=== PATIENT | male | born 1930 | race Caucasian/White ===

== ENCOUNTER 2017-08-17 07:58 | Inpatient (IN) | payer OTHER ==
[2017-08-17] MEDS ORDERED: ACETAMINOPHEN 325 MG TAB PO PRN (17:06)
[2017-08-17] MEDS ORDERED: BISACODYL 10 MG SUPP PR PRN (17:07)
--- NOTE | 2017-08-17 18:23 | GHP ---
[f rep st] HISTORY AND PHYSICAL POST ADMISSION PHYSICIAN EVALUATION AND REHABILITATION TREATMENT PLAN DATE OF ADMISSION: 08/17/2017 DATE OF EVALUATION: 08/17/2017. TIME OF EVALUATION: 1650. REFERRING FACILITY: [facility]. IMPAIRMENT GROUP: 1.2. DATE OF ONSET: 08/04/2017. REFERRING PHYSICIAN: Dr. Boyle. CONSULTING PHYSICIANS: Neurology, Dr. Barksdale. He also had cardiology consult for an echocardiogram. REHABILITATION DIAGNOSIS: Cerebrovascular accident, punctate posterior left frontal lobe. ETIOLOGIC DIAGNOSIS: Right body involvement (left brain). HISTORY OF PRESENT ILLNESS: This patient is an 87-year-old man who was admitted to [facility] on 08/14/2017 with sudden onset of confusion and speech difficulties. This was consistent with a cerebrovascular accident. A CT scan at the hospital did not show any hemorrhage. He received tPA thrombolysis in the emergency department. Further evaluation during his hospital stay included an MRI of the brain which showed a punctate acute white matter infarct in the left posterior frontal lobe, extensive chronic small- vessel ischemic changes, and several old microhemorrhages. A CT angiogram showed extensive intracranial atherosclerotic disease, also seen on CT angiogram of the neck. 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 He had severe stenosis of various arteries in the brain. Echocardiogram showed normal systolic function with an ejection fraction of 69%. He had mild mitral regurgitation. He had mildly elevated right ventricular systolic pressure at 37 mmHg and mild tricuspid regurgitation. There was no atrial septal defect or patent foramen ovale. LABORATORY STUDIES: He was considered to be dehydrated on admission. His BUN was 29 and his creatinine was 1.71. He had rehydration. His overall renal function and electrolytes were within normal limits but for his BUN on 2017, which remained at elevated at 35 and creatinine at 1.66. LDL was 105, total cholesterol was 180, HDL was 50 and triglycerides were 128. CBC on admission was normal with a hemoglobin of 14.9 and hematocrit of 43.6, and on he had developed anemia with a hemoglobin of 11.6 and hematocrit of 35. CBC was otherwise within normal limits. INR was normal at 0.97. He was treated with simvastatin and clopidogrel. Aspirin was continued. He was begun on heparin for DVT prophylaxis. He had gradual improvement in his aphasia. He participating in therapies and appropriate for inpatient rehabilitation. PRECAUTIONS: He is a fall risk. ACTIVE COMORBIDITIES: He has the tier 3 comorbidity of diabetes mellitus with manifestations. PAST MEDICAL HISTORY: 1. Diabetes mellitus. 2. Hypertension. PAST SURGICAL HISTORY: I do not know whether he has had surgeries or not. PRE-HOSPITAL MEDICATIONS: The family reports he was taking medication for blood pressure, but it is unknown what he was taking. He was taking metformin. He was taking aspirin 325 mg daily. ADMISSION MEDICATIONS: 1. Acetaminophen 650 mg p.o. q.6 hours p.r.n. 2. Aspirin 325 mg p.o. at bedtime. 3. Clopidogrel 75 mg p.o. daily. 4. Heparin 5000 units subcutaneous q.12 hours. 5. Simvastatin 40 mg p.o. at bedtime. ALLERGIES: There are no known drug allergies. 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 He worked for the [employer]. He is a former smoker and quit in 1988. He has been splitting his time between [place], where 1 of his sons lives, and [place], where his other son lives, and in either situation he lives with the son and family. He has managed his own medications and made his own travel plans though, in recent times, he was arranging for a wheelchair to [place] at the [place] and had become increasingly sedentary. He spends time reading and watching television and on an iPad, but was spending increased time watching television and less time reading recently. FAMILY HISTORY: Noncontributory. REVIEW OF SYSTEMS: Limited, as he has expressive aphasia. He denies pain. He denies cough or dyspnea. He has a good appetite. He has had poor sleep in the hospital per his son, particularly interrupted in the beginning of the week for frequent neuro checks, but he likely has not had a full night's sleep during his hospitalization. Otherwise, a 10-point review of systems to the extent that could be conducted was negative. PHYSICAL EXAM: VITALS: Blood pressure is 136/90, heart rate is 84, respiratory rate is 18, oxygen saturation is 92% on room air. Temperature is 37 degrees centigrade. His weight is 85.5 kg for a body mass index of 27. GENERAL: This is an overweight elderly man, appears younger than his chronologic age, cooperative and in no acute distress. HEENT: Extraocular movements are intact. Pupils are miotic but responsive to light and round. Mucous membranes are moist. He has halitosis. Dentition is in good condition, but he appears to be in need of better oral hygiene. He has a mildly crowded airway, Mallampati class II. NECK: Supple. HEART: Regular rate and rhythm with no murmurs, rubs, or gallops. LUNGS: Clear to auscultation bilaterally. ABDOMEN: Soft, nontender, nondistended with normoactive bowel sounds and no hepatosplenomegaly. He has occasional hiccups. EXTREMITIES: There is no cyanosis or clubbing. There is trace edema bilaterally to the lower extremities. Radial and dorsalis pedis pulses are 2+ bilaterally. NEUROLOGIC: He is alert, he is oriented to himself. He is able to say the month and date of . He is dysarthric and he appears to use neologisms at times though assessment is confounded by the dysarthria. Cranial nerves 2-12 are grossly intact. There is no focal weakness, though he was not completely compliant with the exam; he did not understand instructions regarding biceps muscle strength testing. Sensation is intact to light touch. Deep tendon reflexes are 1+ bilaterally at the biceps and patella, and hypoactive at the Achilles tendons. Sensory exam was difficult to complete due to communication difficulties. His plantar reflex was upgoing on the right and indeterminate on the left. He stood up from seated without being prompted to do so. He had retropulsion while standing and also was retropulsive while sitting up. He was able to arise from supine to seated and from seated to standing without assistance. CURRENT LEVEL OF FUNCTION: Per the pre-admission screen. Regarding diet, feeding, and swallowing he was on a regular diet with thin liquids. He required minimal assistance with hand over hand for motor planning. Regarding grooming, he required moderate assistance. For dressing the upper extremities he required moderate assistance and the lower extremities required maximal assistance. Toileting was done with moderate assistance. Bed mobility required minimal assistance; transfers, moderate assistance using a front- wheeled walker. Regarding balance, sitting, he was able to maintain position; standing static required moderate assistance and standing dynamic required minimal to moderate assistance with movement. Endurance was fair. He ambulated 15 feet with a front-wheeled walker and assistance for walker management due to motor apraxia. He had right-sided inattention. Regarding communication, he was noted to have moderate expressive and receptive aphasia and apraxia. Regarding cognition, he was noted to have moderate expressive and receptive aphasia. Auditory comprehension was 75%. He was able to follow simple commands with 80% accuracy. He was noted to have right upper extremity and right lower extremity weakness. IMPRESSION: This is an 87-year-old man with significant underlying cerebrovascular disease with atherosclerosis of multiple vessels and evidence of past microhemorrhages who suffered a left posterior frontal lobe punctate infarction. He was treated with thrombolysis and has had some improvement in his expression and in his mobility. He remains aphasic, likely expressive greater than receptive, and dysarthric. Additionally, he has apraxia of speech , and motor apraxia and motor planning deficits, creating a fall risk and deficits to mobility and activities of daily living. He has some improvement from the preadmission screen. Specifically, he is likely to need no more than minimal assistance for transferring, and standby to contact guard assist for bed mobility. However, these do not affect his appropriateness for inpatient rehabilitation. He will benefit from physical and occupational therapy to optimize his mobility and activities of daily living toward discharge home with family at the modified independent level, and speech therapy to optimize his communication and cognition. For a safe discharge, it is expected that he will achieve modified independence with mobility and activities of daily living, that he will be intelligible the majority of time and be able to understand written and spoken language. He will need to be able to manage his medications or there will need to be medication education for his family and there will need to be neurologic education for his family. He will have any durable medical equipment , as to be determined during his rehabilitation stay. He will have physical therapy, occupational therapy, and speech and language pathology for 60 minutes per day for each discipline on 5-7 days of the week. His expected duration of stay is 14-21 days. It is expected that upon discharge he will continue to benefit from home health services including nursing, speech and language pathology, a nurse's aide, occupational therapy, and physical therapy. He will also likely benefit from a stroke support group. PLAN: 1. Left posterior frontal punctate infarct with balance impairment, right- sided weakness and motor apraxia. PT and OT to optimize mobility and activities of daily living towards the modified independent level. 2. Expressive and receptive aphasia and possible cognitive effects of stroke to be assessed and treated per speech and language pathology. 3. Diabetes mellitus type 2. His blood sugars have not been elevated significantly in the hospital and he did not receive any insulin. Will continue metformin pending lab results regarding renal function. Will not continue blood sugar checks or an insulin sliding scale. Will check a hemoglobin A1c. 4. Secondary stroke prophylaxis. Continue aspirin plus clopidogrel and continue simvastatin. 5. He had hypoxia in the hospital. Chest x-ray was done which showed minimal bilateral basilar atelectasis. He will have incentive spirometry and he will have oxygen as needed. It is expected that he will not continue to need oxygen when he is discharged. 6. Anemia was progressively worsening during his hospitalization, possibly due to hemodilution with IV fluids. Will check a CBC in the morning. 7. Renal insufficiency, unclear of chronicity, stage 3 or stage 4. Repeat a BMP in the morning. 8. Halitosis. He will have careful attention to dental hygiene. 9. Mild pulmonary hypertension. This may contribute to his hypoxia while he was in the hospital. Again, he will have oxygen as needed and emphasis on use of incentive spirometry. 10. Prophylaxis. He has significantly reduced mobility, though he does not have jarocho hemiplegia. Continue heparin 5000 units subcutaneous twice daily as ordered out of the hospital. Hope to be able to discontinue this soon if his mobility improves. He has no history of peptic ulcer disease. Unclear whether his anemia might be related to any gastrointestinal blood loss. He has not otherwise been symptomatic. Will await CBC in the morning to assess regarding whether anemia is progressive and will not institute a proton pump inhibitor at present. FOLLOWUP: He is to see neurologist, Dr. James Barksdale, in approximately 6 weeks and he will need to establish with a primary care provider. /[id number]/MODL MTDD
[2017-08-17] MEDS: HEPARIN 5,000 UNIT/0.5 ML SYR SC SCH (20:16)
[2017-08-17] MEDS: ATORVASTATIN CALCIUM 20 MG TAB PO SCH (20:17)
[2017-08-17] MEDS: ASPIRIN EC 325 MG TAB PO SCH (20:17)
[2017-08-18 09:17] LABS: PLATELET COUNT 189 10^3/uL (150-400)
--- NOTE | 2017-08-18 09:27 | SOAPPROG ---
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 * Apraxia appears improved re ADLs today 08/18/2017. Per OT, continues retropulsive needing CGA for balance. * PT and OT to optimize mobility and activities of daily living towards the modified independent level. * Expressive and receptive aphasia and possible cognitive effects of stroke to be assessed and treated per speech and language pathology. * Dysarthria improved on exam 08/18/2018. * Diabetes mellitus type 2. His blood sugars have not been elevated significantly in the hospital and he did not receive any insulin. * Continue metformin 500 mg BID. Will not continue blood sugar checks or an insulin sliding scale. * Check a hemoglobin A1c. * Secondary stroke prophylaxis. Continue aspirin plus clopidogrel and continue simvastatin. * Hypoxia in the hospital. Chest x-ray was done which showed minimal bilateral basilar atelectasis. * Incentive spirometry and he will have oxygen as needed. * Anemia was progressively worsening during his hospitalization, possibly due to hemodilution with IV fluids. * Resolved on CBC 119 2017. * Renal insufficiency. * Stage 3: creatinine 1.3 and estimated GFR 52 on labs 08/18/2017. * Mild pulmonary hypertension. This may contribute to his hypoxia while he was in the hospital. * Oxygen as needed and emphasis on use of incentive spirometry. *Prophylaxis. He has significantly reduced mobility, though he does not have jarocho hemiplegia. Continue heparin 5000 units subcutaneous twice daily as ordered out of the hospital. Hope to be able to discontinue this soon if his mobility improves. He has no history of peptic ulcer disease. Unclear whether his anemia might be related to any gastrointestinal blood loss. He has not otherwise been symptomatic. Will await CBC in the morning to assess regarding whether anemia is progressive and will not institute a proton pump inhibitor at present. FOLLOWUP: He is to see neurologist, Dr. James Barksdale, in approximately 6 weeks and he will need to establish with a primary care provider. 08/18/17 09:50 Subjective: No complaints this morning. Slept well. Not in pain. No cough or dyspnea. Good appetite. Objective: Vital Signs Temp Pulse Resp BP Pulse Ox 36.8 C 76 18 126/69 H 96 08/18/17 06:48 08/18/17 06:48 08/18/17 06:48 08/18/17 06:48 08/18/17 06:48 Laboratory Results 08/18/17 06:00 08/17/17 08/18/17 08/19/17 05:59 05:59 05:59 Intake Total 220 Balance 220 Physical Exam - Physical Exam General Appearance: WD/WN, alert, no apparent distress Respiratory: normal breath sounds, No crackles, No rhonchi, No wheezing Cardiac/Chest: regular rate, rhythm, No diastolic murmur, No systolic murmur Skin: normal color, warm/dry Neuro/Psych: alert, normal mood/affect, aphasia (Expressive and possibly receptive), other (Brushes teeth with no apparent ataxia either arm) ICD10 Worksheet Patient Problems: Problems Problem Status Onset Chronic lower back pain Acute Sciatica Acute
--- NOTE | 2017-08-18 09:28 | PDOREHIP ---
Admission [facility] - Admission - 3 Day Assessment Period Admission Date/Day 1: 08/17/17 Day 2: 08/18/17 Day 3: 08/19/17 - Active Diagnoses Comorbidities and Co-existing Conditions at Admission: 30254. DM (e.g. diabetic retinopathy, nephropathy, and neuropathy) - Skin Conditions Unhealed Pressure Ulcer (1 or more/Stage 1 or >)-Admission: 0. No
[2017-08-18] MEDS: HEPARIN 5,000 UNIT/0.5 ML SYR SC SCH ×2 (10:20→20:06)
[2017-08-18] MEDS: CLOPIDOGREL BISULFATE 75 MG TAB PO SCH (10:20)
[2017-08-18] MEDS: metFORMIN HCL 500 MG TAB PO SCH (18:25)
[2017-08-18] MEDS: ATORVASTATIN CALCIUM 20 MG TAB PO SCH (20:05)
[2017-08-18] MEDS: ASPIRIN EC 325 MG TAB PO SCH (20:05)
[2017-08-19] MEDS: metFORMIN HCL 500 MG TAB PO SCH ×2 (08:04→17:13)
[2017-08-19] MEDS: CLOPIDOGREL BISULFATE 75 MG TAB PO SCH (08:04)
[2017-08-19] MEDS: HEPARIN 5,000 UNIT/0.5 ML SYR SC SCH ×2 (08:04→20:28)
--- NOTE | 2017-08-19 14:37 | SOAPPROG ---
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 * Apraxia appears improved re ADLs today 08/18/2017. Per OT, continues retropulsive needing CGA for balance. * PT and OT to optimize mobility and activities of daily living towards the modified independent level. * Expressive and receptive aphasia and possible cognitive effects of stroke to be assessed and treated per speech and language pathology. * Dysarthria improved on exam 08/18/2018. * Diabetes mellitus type 2. His blood sugars have not been elevated significantly in the hospital and he did not receive any insulin. * Continue metformin 500 mg BID. Will not continue blood sugar checks or an insulin sliding scale. * Check a hemoglobin A1c. * Secondary stroke prophylaxis. Continue aspirin plus clopidogrel and continue simvastatin. * Hypoxia in the hospital. Chest x-ray was done which showed minimal bilateral basilar atelectasis. * Incentive spirometry and he will have oxygen as needed. * Anemia was progressively worsening during his hospitalization, possibly due to hemodilution with IV fluids. * Resolved on CBC 119 2017. * Renal insufficiency. * Stage 3: creatinine 1.3 and estimated GFR 52 on labs 08/18/2017. * Mild pulmonary hypertension. This may contribute to his hypoxia while he was in the hospital. * Oxygen as needed and emphasis on use of incentive spirometry. *Prophylaxis. He has significantly reduced mobility, though he does not have jarocho hemiplegia. Continue heparin 5000 units subcutaneous twice daily as ordered out of the hospital. Hope to be able to discontinue this soon if his mobility improves. He has no history of peptic ulcer disease. Unclear whether his anemia might be related to any gastrointestinal blood loss. He has not otherwise been symptomatic. Will await CBC in the morning to assess regarding whether anemia is progressive and will not institute a proton pump inhibitor at present. FOLLOWUP: He is to see neurologist, Dr. James Barksdale, in approximately 6 weeks and he will need to establish with a primary care provider. Plan: 08/19/17 14:37 Subjective: no new complaints Objective: Vital Signs Temp Pulse Resp BP Pulse Ox 36.6 C 77 18 110/78 98 08/19/17 08:00 08/19/17 08:00 08/19/17 08:00 08/19/17 08:00 08/19/17 08:00 Laboratory Results 08/18/17 06:00 08/18/17 06:00 08/18/17 08/19/17 08/20/17 05:59 05:59 05:59 Intake Total 220 890 838 Output Total 1550 500 Balance 220 -660 338 Physical Exam - Physical Exam General Appearance: WD/WN, alert, no apparent distress Respiratory: lungs clear Cardiac/Chest: regular rate, rhythm, No edema Neuro/Psych: alert, normal mood/affect ICD10 Worksheet Patient Problems: Problems Problem Status Onset Chronic lower back pain Acute Sciatica Acute
[2017-08-19] MEDS: ASPIRIN EC 325 MG TAB PO SCH (20:28)
[2017-08-19] MEDS: ATORVASTATIN CALCIUM 20 MG TAB PO SCH (20:28)
[2017-08-20] MEDS: metFORMIN HCL 500 MG TAB PO SCH ×2 (07:46→17:17)
[2017-08-20] MEDS: CLOPIDOGREL BISULFATE 75 MG TAB PO SCH (07:46)
[2017-08-20] MEDS: HEPARIN 5,000 UNIT/0.5 ML SYR SC SCH ×2 (07:47→19:50)
--- NOTE | 2017-08-20 19:48 | SOAPPROG ---
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 * Apraxia appears improved re ADLs today 08/18/2017. Per OT, continues retropulsive needing CGA for balance. * PT and OT to optimize mobility and activities of daily living towards the modified independent level. * Expressive and receptive aphasia and possible cognitive effects of stroke to be assessed and treated per speech and language pathology. * Dysarthria improved on exam 08/18/2018. * Diabetes mellitus type 2. His blood sugars have not been elevated significantly in the hospital and he did not receive any insulin. * Continue metformin 500 mg BID. Will not continue blood sugar checks or an insulin sliding scale. * Check a hemoglobin A1c. * Secondary stroke prophylaxis. Continue aspirin plus clopidogrel and continue simvastatin. * Hypoxia in the hospital. Chest x-ray was done which showed minimal bilateral basilar atelectasis. * Incentive spirometry and he will have oxygen as needed. * Anemia was progressively worsening during his hospitalization, possibly due to hemodilution with IV fluids. * Resolved on CBC 119 2017. * Renal insufficiency. * Stage 3: creatinine 1.3 and estimated GFR 52 on labs 08/18/2017. * Mild pulmonary hypertension. This may contribute to his hypoxia while he was in the hospital. * Oxygen as needed and emphasis on use of incentive spirometry. *Prophylaxis. He has significantly reduced mobility, though he does not have jarocho hemiplegia. Continue heparin 5000 units subcutaneous twice daily as ordered out of the hospital. Hope to be able to discontinue this soon if his mobility improves. He has no history of peptic ulcer disease. Unclear whether his anemia might be related to any gastrointestinal blood loss. He has not otherwise been symptomatic. Will await CBC in the morning to assess regarding whether anemia is progressive and will not institute a proton pump inhibitor at present. FOLLOWUP: He is to see neurologist, Dr. James Barksdale, in approximately 6 weeks and he will need to establish with a primary care provider. Plan: 08/19/17 14:37 Subjective: no new complaints Objective: Vital Signs Temp Pulse Resp BP Pulse Ox 36.5 C 91 16 128/76 H 93 08/20/17 19:35 08/20/17 19:35 08/20/17 19:35 08/20/17 19:35 08/20/17 19:35 Laboratory Results 08/18/17 06:00 08/18/17 06:00 08/19/17 08/20/17 08/21/17 05:59 05:59 05:59 Intake Total 890 1498 960 Output Total 1550 1300 900 Balance -660 198 60 Physical Exam - Physical Exam General Appearance: WD/WN, alert, no apparent distress Respiratory: lungs clear, normal breath sounds, No respiratory distress Cardiac/Chest: regular rate, rhythm Neuro/Psych: alert, normal mood/affect, oriented x 3 ICD10 Worksheet Patient Problems: Problems Problem Status Onset Chronic lower back pain Acute Sciatica Acute
[2017-08-20] MEDS: ATORVASTATIN CALCIUM 20 MG TAB PO SCH (19:50)
[2017-08-20] MEDS: ASPIRIN EC 325 MG TAB PO SCH (19:50)
[2017-08-21] MEDS: metFORMIN HCL 500 MG TAB PO SCH ×2 (08:01→16:50)
[2017-08-21] MEDS: HEPARIN 5,000 UNIT/0.5 ML SYR SC SCH (08:01)
[2017-08-21] MEDS: CLOPIDOGREL BISULFATE 75 MG TAB PO SCH (08:01)
--- NOTE | 2017-08-21 09:56 | SOAPPROG ---
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 * Initial functional independence measure 75. Independent with bed mobility. Transfers with standby assist, occasional contact guard assist for retropulsion. Ambulated 500 ft with a cane. Climbed 6 stairs with 1 rail and cues. Grooming and hygiene standing at the sink with standby assist. Dresses with setup to contact guard assist. Toileting standby assist. * Continue PT and OT to optimize mobility and activities of daily living towards the modified independent level. * Expressive and receptive aphasia, and cognitive impairment * Significant can't expressive aphasia. Some receptive aphasia but exam is count and by hearing loss. * Has decreased memory. * Continue speech and language pathology. * Diabetes mellitus type 2. His blood sugars have not been elevated significantly in the hospital and he did not receive any insulin. * Continue metformin 500 mg BID. Will not continue blood sugar checks or an insulin sliding scale. * Hemoglobin A1c 6.5. * Secondary stroke prophylaxis. Continue aspirin plus clopidogrel and continue simvastatin. * Hypoxia in the hospital. Chest x-ray was done which showed minimal bilateral basilar atelectasis. * Resolved. Continue incentive spirometry. * Anemia was progressively worsening during his hospitalization, possibly due to hemodilution with IV fluids. * Resolved on CBC 119 2017. * Renal insufficiency. * Stage 3: creatinine 1.3 and estimated GFR 52 on labs 08/18/2017. * Mild pulmonary hypertension. This may contribute to his hypoxia while he was in the hospital. * Oxygen as needed and emphasis on use of incentive spirometry. * Prophylaxis. Mobility is much improved. Discontinue subcutaneous heparin starting 08/21/2017. Attended staffing, 15 min. Discussed with case management, dietitian, nursing, PT, OT, SP. Patient had tends to moved to [place] independent living in September. He might discharge to his son's home the interim if he can be independent during the day when his son and [id number] are at work and if he can climb and descend stairs to the full bath. Tentative discharge date of set FOLLOWUP: He is to see neurologist, Dr. James Barksdale, in approximately 6 weeks and he will need to establish with a primary care provider. 08/21/17 11:29 Subjective: No complaints. Thinks his balance and mobility are improved. Speaking and understanding better. Objective: Vital Signs Temp Pulse Resp BP Pulse Ox 36.7 C 84 16 117/86 H 92 08/21/17 07:48 08/21/17 07:48 08/21/17 07:48 08/21/17 07:48 08/21/17 07:48 Laboratory Results 08/18/17 06:00 08/18/17 06:00 08/20/17 08/21/17 08/22/17 05:59 05:59 05:59 Intake Total 1498 960 320 Output Total 1300 1400 Balance 198 -440 320 - Time Spent With Patient Time Spent With Patient: Greater than 35 min floor time today, including more than 50% of time in coordination of care during staffing, and counseling patient. Physical Exam - Physical Exam General Appearance: WD/WN, alert, no apparent distress Respiratory: normal breath sounds, No crackles, No rhonchi, No wheezing Cardiac/Chest: regular rate, rhythm, No edema, No diastolic murmur, No systolic murmur Skin: normal color, warm/dry Neuro/Psych: alert, normal mood/affect, oriented x 3, other (No obvious dysarthria) ICD10 Worksheet Patient Problems: Problems Problem Status Onset Chronic lower back pain Acute Sciatica Acute
[2017-08-21] MEDS: ATORVASTATIN CALCIUM 20 MG TAB PO SCH (20:34)
[2017-08-21] MEDS: ASPIRIN EC 325 MG TAB PO SCH (20:35)
--- NOTE | 2017-08-22 08:42 | SOAPPROG ---
SOAP Progress Note Assessment/Plan: 87-year-old male status post posterior left frontal lobe stroke, status post tPA. Evidence of small vessel ischemic changes and old microhemorrhages on neuro imaging. 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 Today's update: Discussed possible use of fluoxetine for motor stroke recovery , however patient is on clopidogrel and interaction is contraindicated. Patient recovering well, still having some issues with word-finding. Occasional feelings of shortness of breath, improving, he feels they are new since his stroke. Seems likely related to his mild pulmonary hypertension, but will also discuss with Dr. Burroughs and review record for other potential etiologies. Did bedside teaching of incentive spirometry. A total of 25 min was spent on the floor in the care of the patient, the majority of which was spent counseling coordination of care regarding teaching of 4 incentive spirometry and consideration of fluoxetine. 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 Impaired mobility and self-care. * Initial functional independence measure 75. Independent with bed mobility. Transfers with standby assist, occasional contact guard assist for retropulsion. Ambulated 500 ft with a cane. Climbed 6 stairs with 1 rail and cues. Grooming and hygiene standing at the sink with standby assist. Dresses with setup to contact guard assist. Toileting standby assist. * Continue PT and OT to optimize mobility and activities of daily living towards the modified independent level. * Not adding fluoxetine given interaction with clopidogrel. * Expressive and receptive aphasia, and cognitive impairment * Significant can't expressive aphasia. Some receptive aphasia but exam is complicated by hearing loss. * Has decreased memory. * Continue speech and language pathology. Likely will need [employer] is an outpatient * Diabetes mellitus type 2. His blood sugars have not been elevated significantly in the hospital and he did not receive any insulin. * Continue metformin 500 mg BID. Will not continue blood sugar checks or an insulin sliding scale. * Hemoglobin A1c 6.5. * Secondary stroke prophylaxis. Continue aspirin plus clopidogrel and continue simvastatin. * Hypoxia in the hospital. Chest x-ray was done which showed minimal bilateral basilar atelectasis. * Resolved. Continue incentive spirometry. * Anemia was progressively worsening during his hospitalization, possibly due to hemodilution with IV fluids. * Resolved on CBC 08/18/2017. * Renal insufficiency. * Stage 3: creatinine 1.3 and estimated GFR 52 on labs 08/18/2017. * Mild pulmonary hypertension. This may contribute to his hypoxia while he was in the hospital. * Oxygen as needed and emphasis on use of incentive spirometry. * Prophylaxis. Mobility is much improved. Discontinue subcutaneous heparin starting 08/21/2017. He might discharge to his son's home the interim if he can be independent during the day when his son and [id number] are at work and if he can climb and descend stairs to the full bath. Tentative discharge date of 08/31/2017 set FOLLOWUP: He is to see neurologist, Dr. James Barksdale, in approximately 6 weeks and he will need to establish with a primary care provider. 08/22/17 08:39 08/22/17 10:33 Subjective: Chief complaint: Neurological recovery No acute events overnight, patient endorses no new shortness of breath or chest pain but does have some ongoing feelings of dyspnea especially with exertion. No new numbness, tingling, or weakness. Patient feels that therapies are going well and he is planning to discharge home locally with friends and family comma ultimately relocating full-time from [place] to [place]. 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 Objective: Vital Signs Temp Pulse Resp BP Pulse Ox 36.5 C 71 18 119/68 92 08/22/17 05:59 08/22/17 05:59 08/22/17 05:59 08/22/17 05:59 08/22/17 05:59 Laboratory Results 08/18/17 06:00 08/18/17 06:00 08/21/17 08/22/17 08/23/17 05:59 05:59 05:59 Intake Total 960 1120 Output Total 1400 1850 550 Balance -440 -730 -550 Physical Exam - Physical Exam General Appearance: alert, no apparent distress EENT: No scleral icterus (R), No scleral icterus (L) Respiratory: lungs clear, normal breath sounds, No respiratory distress, No accessory muscle use, No decreased breath sounds, No rales, No rhonchi, No wheezing, No prolonged expiration, No pleural rub, No retractions, No pain on movement Cardiac/Chest: normal peripheral pulses, regular rate, rhythm, No edema, No diastolic murmur, No systolic murmur, No extra beats, No irregularly irregular Skin: normal color, warm/dry, No cyanosis, No diaphoresis Extremities: non-tender, No pedal edema, No calf tenderness, No swelling Neuro/Psych: alert, normal mood/affect, oriented x 3, other (Word-finding difficulties) ICD10 Worksheet Patient Problems: Problems Problem Status Onset Chronic lower back pain Acute Sciatica Acute
[2017-08-22] MEDS: metFORMIN HCL 500 MG TAB PO SCH ×2 (09:42→17:21)
[2017-08-22] MEDS: CLOPIDOGREL BISULFATE 75 MG TAB PO SCH (09:42)
[2017-08-22] MEDS: ATORVASTATIN CALCIUM 20 MG TAB PO SCH (20:13)
[2017-08-22] MEDS: ASPIRIN EC 325 MG TAB PO SCH (20:14)
[2017-08-23] MEDS: CLOPIDOGREL BISULFATE 75 MG TAB PO SCH (08:12)
[2017-08-23] MEDS: metFORMIN HCL 500 MG TAB PO SCH ×2 (08:12→18:07)
[2017-08-23] MEDS ORDERED: PNEUMOC 13-VAL CONJ-DIP CRM/PF 0.5 ML SYR IM ONE ×2 (12:51→15:30)
--- NOTE | 2017-08-23 13:49 | SOAPPROG ---
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 * Initial functional independence measure 75. Independent with bed mobility. Transfers with standby assist, occasional contact guard assist for retropulsion. Ambulated 500 ft with a cane. Climbed 6 stairs with 1 rail and cues. Grooming and hygiene standing at the sink with standby assist. Dresses with setup to contact guard assist. Toileting standby assist. * Noted to be less impulsive. Has been made independent in his room starting . * Continue PT and OT to optimize mobility and activities of daily living towards the modified independent level. * Expressive and receptive aphasia, and cognitive impairment * Significant expressive aphasia. Some receptive aphasia but exam is count and by hearing loss. * Has decreased memory. * Continue speech and language pathology. * Diabetes mellitus type 2. His blood sugars have not been elevated significantly in the hospital and he did not receive any insulin. * Continue metformin 500 mg BID. Will not continue blood sugar checks or an insulin sliding scale. * Hemoglobin A1c 6.5. * Secondary stroke prophylaxis. Continue aspirin plus clopidogrel and continue simvastatin. * Hypoxia in the hospital. Chest x-ray was done which showed minimal bilateral basilar atelectasis. * Resolved. Continue incentive spirometry. * D-dimer checked yesterday, slightly elevated at 0.74 but normal by age corrected protocol. No signs or symptoms of DVT or pulmonary embolus. No indication for any further testing. * Anemia was progressively worsening during his hospitalization, possibly due to hemodilution with IV fluids. * Resolved on CBC 119 2017. * Renal insufficiency. * Stage 3: creatinine 1.3 and estimated GFR 52 on labs 08/18/2017. * Mild pulmonary hypertension. This may contribute to his hypoxia while he was in the hospital. * Oxygen as needed and emphasis on use of incentive spirometry. * Prophylaxis. Mobility is much improved. Discontinue subcutaneous heparin starting 08/21/2017. Patient had intended to move to [place] for independent living in September. He might discharge to his son's home the interim if he can be independent during the day when his son and [id number] are at work and if he can climb and descend stairs to the full bath. Discharge plan for 08/28/2017. Family conference 08/25/2017. FOLLOWUP: He is to see neurologist, Dr. James Barksdale, in approximately 6 weeks and he will need to establish with a primary care provider. 08/23/17 13:42 Subjective: No complaints. Denies pain, cough, dyspnea. Slept well. Objective: Vital Signs Temp Pulse Resp BP Pulse Ox 36.4 C 73 20 130/75 H 93 08/23/17 06:31 08/23/17 06:31 08/23/17 06:31 08/23/17 06:31 08/23/17 06:31 Laboratory Results 08/18/17 06:00 08/18/17 06:00 08/22/17 08/23/17 08/24/17 05:59 05:59 05:59 Intake Total 1120 1600 608 Output Total 1850 1550 925 Balance -730 50 -317 Physical Exam - Physical Exam General Appearance: WD/WN, alert, no apparent distress Respiratory: No respiratory distress, No accessory muscle use Skin: normal color, warm/dry Extremities: No calf tenderness, No swelling Neuro/Psych: alert, normal mood/affect, oriented x 3 ICD10 Worksheet Patient Problems: Problems Problem Status Onset Chronic lower back pain Acute Sciatica Acute
[2017-08-23] MEDS: ASPIRIN EC 325 MG TAB PO SCH (20:19)
[2017-08-23] MEDS: ATORVASTATIN CALCIUM 20 MG TAB PO SCH (20:19)
--- NOTE | 2017-08-24 08:52 | SOAPPROG ---
SOAP Progress Note Assessment/Plan: 87-year-old male status post posterior left frontal lobe stroke, status post tPA. Evidence of small vessel ischemic changes and old microhemorrhages on neuro imaging. 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 Today's update: Doing well, dyspnea has resolved per his report. Doing well in therapy overall, looking forward to going home on Monday. Family conference tomorrow. 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 Impairments in mobility and self-care * Initial functional independence measure 75. Independent with bed mobility. Transfers with standby assist, occasional contact guard assist for retropulsion. Ambulated 500 ft with a cane. Climbed 6 stairs with 1 rail and cues. Grooming and hygiene standing at the sink with standby assist. Dresses with setup to contact guard assist. Toileting standby assist. * Noted to be less impulsive. Has been made independent in his room starting . * Continue PT and OT to optimize mobility and activities of daily living towards the modified independent level. * Expressive and receptive aphasia, and cognitive impairment * Significant expressive aphasia. Some receptive aphasia but exam is count and by hearing loss. * Has decreased memory. * Continue speech and language pathology. * Diabetes mellitus type 2. His blood sugars have not been elevated significantly in the hospital and he did not receive any insulin. * Continue metformin 500 mg BID. Will not continue blood sugar checks or an insulin sliding scale. * Hemoglobin A1c 6.5. * Secondary stroke prophylaxis. Continue aspirin plus clopidogrel and continue simvastatin. * Hypoxia in the hospital. Chest x-ray was done which showed minimal bilateral basilar atelectasis. * Resolved. Continue incentive spirometry. * D-dimer checked yesterday, slightly elevated at 0.74 but normal by age corrected protocol. No signs or symptoms of DVT or pulmonary embolus. No indication for any further testing. * Anemia was progressively worsening during his hospitalization, possibly due to hemodilution with IV fluids. * Resolved on CBC 119 2017. * Renal insufficiency. * Stage 3: creatinine 1.3 and estimated GFR 52 on labs 08/18/2017. * Mild pulmonary hypertension. This may contribute to his hypoxia while he was in the hospital. * Oxygen as needed and emphasis on use of incentive spirometry. * Prophylaxis. Mobility is much improved. Discontinue subcutaneous heparin starting 08/21/2017. Patient had intended to move to [place] for independent living in September. He might discharge to his son's home the interim if he can be independent during the day when his son and [id number] are at work and if he can climb and descend stairs to the full bath. Discharge plan for 08/28/2017. Family conference 08/25/2017. FOLLOWUP: He is to see neurologist, Dr. James Barksdale, in approximately 6 weeks and he will need to establish with a primary care provider. 08/22/17 08:39 08/22/17 10:33 08/24/17 08:50 Subjective: Chief complaint neurological improvement No acute events overnight. Patient denies any new shortness of breath or chest pain, no new numbness, tingling, or weakness. This subjective shortness of breath he was experiencing previously had resolved. Therapies are going well, a family conference scheduled for tomorrow, he is looking forward to going home on Monday. Looking forward to relocating full-time to [place] where he has lived in the past. He has good social support systems here. Objective: Vital Signs Temp Pulse Resp BP Pulse Ox 36.9 C 73 16 109/69 93 08/23/17 20:00 08/23/17 20:00 08/23/17 20:00 08/23/17 20:00 08/23/17 20:00 Laboratory Results 08/18/17 06:00 08/18/17 06:00 08/23/17 08/24/17 08/25/17 05:59 05:59 05:59 Intake Total 1600 858 Output Total 1550 1525 400 Balance 50 -667 -400 Physical Exam - Physical Exam General Appearance: alert, no apparent distress Respiratory: No respiratory distress, No accessory muscle use Cardiac/Chest: normal peripheral pulses, regular rate, rhythm, No edema Skin: normal color, warm/dry, No cyanosis, No diaphoresis Extremities: No pedal edema, No swelling Neuro/Psych: alert, normal mood/affect, oriented x 3 ICD10 Worksheet Patient Problems: Problems Problem Status Onset Chronic lower back pain Acute Sciatica Acute
[2017-08-24] MEDS: CLOPIDOGREL BISULFATE 75 MG TAB PO SCH (09:13)
[2017-08-24] MEDS: metFORMIN HCL 500 MG TAB PO SCH ×2 (09:13→17:17)
[2017-08-24] MEDS: ASPIRIN EC 325 MG TAB PO SCH (19:56)
[2017-08-24] MEDS: ATORVASTATIN CALCIUM 20 MG TAB PO SCH (19:56)
[2017-08-25] MEDS: SENNOSIDES 1 TAB PO PRN ×2 (08:37→20:04)
[2017-08-25] MEDS: metFORMIN HCL 500 MG TAB PO SCH ×2 (08:37→19:34)
[2017-08-25] MEDS: CLOPIDOGREL BISULFATE 75 MG TAB PO SCH (08:37)
--- NOTE | 2017-08-25 13:27 | SOAPPROG ---
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 * Initial functional independence measure 75 on 08/21/2017. Independent with bed mobility. Transfers with standby assist, occasional contact guard assist for retropulsion. Ambulated 500 ft with a cane. Climbed 6 stairs with 1 rail and cues. Grooming and hygiene standing at the sink with standby assist. Dresses with setup to contact guard assist. Toileting standby assist. * Subsequently advanced to independent in his room. * Noted to be less impulsive. Has been made independent in his room starting . * Continue PT and OT to optimize mobility and activities of daily living towards the modified independent level. * Expressive and receptive aphasia, and cognitive impairment * Significant expressive aphasia. Some receptive aphasia but exam is confounded by hearing loss. * Has decreased memory. Has log book but needs cues to use it. * Continue speech and language pathology. * Diabetes mellitus type 2. His blood sugars have not been elevated significantly in the hospital and he did not receive any insulin. * Continue metformin 500 mg BID. Will not continue blood sugar checks or an insulin sliding scale. * Hemoglobin A1c 6.5. * Secondary stroke prophylaxis. Continue aspirin plus clopidogrel and continue simvastatin. * Hypoxia in the hospital. Chest x-ray was done which showed minimal bilateral basilar atelectasis. * Resolved. Continue incentive spirometry. * D-dimer checked yesterday, slightly elevated at 0.74 but normal by age corrected protocol. No signs or symptoms of DVT or pulmonary embolus. No indication for any further testing. * Anemia was progressively worsening during his hospitalization, possibly due to hemodilution with IV fluids. * Resolved on CBC 119 2017. * Renal insufficiency. * Stage 3: creatinine 1.3 and estimated GFR 52 on labs 08/18/2017. * Mild pulmonary hypertension. This may contribute to his hypoxia while he was in the hospital. * Oxygen as needed and emphasis on use of incentive spirometry. * Prophylaxis. Mobility is much improved. Discontinue subcutaneous heparin starting 08/21/2017. Patient had intended to move to [place] for independent living in September. He might discharge to his son's home the interim if he can be independent during the day when his son and [id number]-ni-zmz are at work and if he can climb and descend stairs to the full bath. Discharge plan for 08/28/2017. Attended family conference, 30 min. Son and [id number] in attendance. Discussed with case management, nursing, dietitian, PT, OT, RIVETING MACHINE OPERATOR. Advised to continue using hearing aids to assist communication. Advised to continue using log book. She have a pillbox and assistance with medication management. FOLLOWUP: He is to see neurologist, Dr. James Barksdale, in approximately 6 weeks. Follow up with the [facility]. Will have outpatient RIVETING MACHINE OPERATOR regarding memory and communication. Should continue with outpatient PT for high-level balance activities and fall prevention. 08/25/17 13:23 Subjective: No complaints. Aware of memory loss. Denies pain, cough, dyspnea, fevers, chills. Objective: Vital Signs Temp Pulse Resp BP Pulse Ox 36.8 C 69 16 139/73 H 95 08/25/17 07:37 08/25/17 07:37 08/25/17 07:37 08/25/17 07:37 08/25/17 07:37 Laboratory Results 08/18/17 06:00 08/18/17 06:00 08/24/17 08/25/17 08/26/17 05:59 05:59 05:59 Intake Total 858 1583 556 Output Total 1525 2500 400 Balance -667 -504 156 - Time Spent With Patient Time Spent With Patient: Greater than 35 min floor time today, including more than 50% of time in coordination of care and counseling during the family conference. Physical Exam - Physical Exam General Appearance: WD/WN, alert, no apparent distress Respiratory: No respiratory distress, No accessory muscle use Skin: normal color, warm/dry Neuro/Psych: no motor/sensory deficits, alert, normal mood/affect, oriented x 3 , abnormal gait (With single-point cane, occasional minor loss of balance.) ICD10 Worksheet Patient Problems: Problems Problem Status Onset Chronic lower back pain Acute Sciatica Acute
[2017-08-25] MEDS ORDERED: MAGNESIUM HYDROXIDE 30 ML UDCUP PO PRN (19:46)
[2017-08-25] MEDS ORDERED: POLYETHYLENE GLYCOL 3350 17 GM PKT PO PRN (19:46)
[2017-08-25] MEDS: ATORVASTATIN CALCIUM 20 MG TAB PO SCH (20:01)
[2017-08-25] MEDS: ASPIRIN EC 325 MG TAB PO SCH (20:01)
[2017-08-26] MEDS: CLOPIDOGREL BISULFATE 75 MG TAB PO SCH (08:06)
[2017-08-26] MEDS: metFORMIN HCL 500 MG TAB PO SCH ×2 (08:06→17:10)
--- NOTE | 2017-08-26 15:06 | SOAPPROG ---
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 * Initial functional independence measure 75 on 08/21/2017. Independent with bed mobility. Transfers with standby assist, occasional contact guard assist for retropulsion. Ambulated 500 ft with a cane. Climbed 6 stairs with 1 rail and cues. Grooming and hygiene standing at the sink with standby assist. Dresses with setup to contact guard assist. Toileting standby assist. * Successfull with trial of independent in his room. * Continue PT and OT to optimize mobility and activities of daily living towards the modified independent level. * Expressive and receptive aphasia, and cognitive impairment * Significant expressive aphasia. Some receptive aphasia but exam is confounded by hearing loss. * Has decreased memory. Has log book but needs cues to use it. * Continue speech and language pathology. * Diabetes mellitus type 2. His blood sugars have not been elevated significantly in the hospital and he did not receive any insulin. * Continue metformin 500 mg BID. Will not continue blood sugar checks or an insulin sliding scale. * Hemoglobin A1c 6.5. * Secondary stroke prophylaxis. Continue aspirin plus clopidogrel and continue simvastatin. * Hypoxia in the hospital. Chest x-ray was done which showed minimal bilateral basilar atelectasis. * Resolved. Continue incentive spirometry. * D-dimer checked yesterday, slightly elevated at 0.74 but normal by age corrected protocol. No signs or symptoms of DVT or pulmonary embolus. No indication for any further testing. * Anemia was progressively worsening during his hospitalization, possibly due to hemodilution with IV fluids. * Resolved on CBC 119 2017. * Renal insufficiency. * Stage 3: creatinine 1.3 and estimated GFR 52 on labs 08/18/2017. * Mild pulmonary hypertension. This may contribute to his hypoxia while he was in the hospital. * Oxygen as needed and emphasis on use of incentive spirometry. * Prophylaxis. Mobility is much improved. Discontinue subcutaneous heparin starting 08/21/2017. Patient had intended to move to [place] for independent living in September. He might discharge to his son's home the interim if he can be independent during the day when his son and [id number] are at work and if he can climb and descend stairs to the full bath. Discharge plan for 08/28/2017. FOLLOWUP: He is to see neurologist, Dr. James Barksdale, in approximately 6 weeks. Follow up with the [facility]. Will have outpatient [employer] regarding memory and communication. Should continue with outpatient PT for high-level balance activities and fall prevention. Plan: Cont Dr Burroughs's rehab treatment plan 08/26/17 15:01 Subjective: In good spirits Aware of biggest challenge being memory Denies F/C/CP/SOB/N/V/D Objective: Vital Signs Temp Pulse Resp BP Pulse Ox 36.6 C 97 16 109/73 94 08/26/17 08:00 08/26/17 08:00 08/26/17 08:00 08/26/17 08:00 08/26/17 08:00 Laboratory Results 08/18/17 06:00 08/18/17 06:00 08/25/17 08/26/17 08/27/17 05:59 05:59 05:59 Intake Total 1583 1516 840 Output Total 1850 1375 Balance -267 141 840 Physical Exam - Physical Exam General Appearance: alert, no apparent distress Respiratory: lungs clear Cardiac/Chest: regular rate, rhythm Skin: normal color, warm/dry Neuro/Psych: alert, normal mood/affect, oriented x 3, aphasia, cognition abnormalities, other (no acute changes) ICD10 Worksheet Patient Problems: Problems Problem Status Onset Chronic lower back pain Acute Sciatica Acute
[2017-08-26] MEDS: ASPIRIN EC 325 MG TAB PO SCH (20:07)
[2017-08-26] MEDS: ATORVASTATIN CALCIUM 20 MG TAB PO SCH (20:08)
[2017-08-27] MEDS: CLOPIDOGREL BISULFATE 75 MG TAB PO SCH (08:16)
[2017-08-27] MEDS: metFORMIN HCL 500 MG TAB PO SCH ×2 (08:16→17:12)
--- NOTE | 2017-08-27 12:20 | SOAPPROG ---
SOAP Progress Note Assessment/Plan: Assessment: Weekend update: Successful with independence in room over weekend. Slept well and feels well rested, strength and endurance improving. 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 * Initial functional independence measure 75 on 08/21/2017. Independent with bed mobility. Transfers with standby assist, occasional contact guard assist for retropulsion. Ambulated 500 ft with a cane. Climbed 6 stairs with 1 rail and cues. Grooming and hygiene standing at the sink with standby assist. Dresses with setup to contact guard assist. * Successfull with trial of independent in his room. * Continue PT and OT to optimize mobility and activities of daily living towards the modified independent level. * Expressive and receptive aphasia, and cognitive impairment * Significant expressive aphasia. Some receptive aphasia but exam is confounded by hearing loss. * Has decreased memory. Has log book but needs cues to use it. * Continue speech and language pathology. * Diabetes mellitus type 2. His blood sugars have not been elevated significantly in the hospital and he did not receive any insulin. * Continue metformin 500 mg BID. Will not continue blood sugar checks or an insulin sliding scale. * Hemoglobin A1c 6.5. * Secondary stroke prophylaxis. Continue aspirin plus clopidogrel and continue simvastatin. * Hypoxia in the hospital. Chest x-ray was done which showed minimal bilateral basilar atelectasis. * Resolved. Continue incentive spirometry. * D-dimer slightly elevated at 0.74 but normal by age corrected protocol. No signs or symptoms of DVT or pulmonary embolus. No indication for any further testing. * Anemia: * Resolved on CBC 08/18/2017. * Renal insufficiency. * Stage 3: creatinine 1.3 and estimated GFR 52 on labs 08/18/2017. * Mild pulmonary hypertension. This may contribute to his hypoxia while he was in the hospital. * Oxygen as needed and emphasis on use of incentive spirometry. * Prophylaxis. Mobility is much improved. Discontinue subcutaneous heparin starting 08/21/2017. Patient had intended to move to [place] for independent living in September. He might discharge to his son's home the interim if he can be independent during the day when his son and [id number] are at work and if he can climb and descend stairs to the full bath. Discharge plan for 08/28/2017. FOLLOWUP: He is to see neurologist, Dr. James Barksdale, in approximately 6 weeks. Follow up with the [facility] at [facility]. Will have outpatient [facility] regarding memory and communication. Should continue with outpatient PT for high-level balance activities and fall prevention. Plan: Cont Dr Burroughs's rehab treatment plan 08/27/17 12:17 Subjective: In great spirits Denies F/C/CP/SOB/N/V/D/C Objective: Vital Signs Temp Pulse Resp BP Pulse Ox 36.3 C 92 16 120/86 H 93 08/27/17 08:00 08/27/17 08:00 08/27/17 08:00 08/27/17 08:00 08/27/17 08:00 Laboratory Results 08/18/17 06:00 08/18/17 06:00 08/26/17 08/27/17 08/28/17 05:59 05:59 05:59 Intake Total 1516 1700 440 Output Total 1375 550 Balance 141 1700 -110 Physical Exam - Physical Exam General Appearance: alert Respiratory: lungs clear Cardiac/Chest: regular rate, rhythm Skin: normal color, warm/dry Extremities: No pedal edema, No calf tenderness Neuro/Psych: alert, normal mood/affect, oriented x 3 ICD10 Worksheet Patient Problems: Problems Problem Status Onset Chronic lower back pain Acute Sciatica Acute
[2017-08-27] MEDS: ASPIRIN EC 325 MG TAB PO SCH (20:03)
[2017-08-27] MEDS: ATORVASTATIN CALCIUM 20 MG TAB PO SCH (20:04)
[2017-08-28 07:17] VITALS: BP 111/66; PULSE 71; RESP 15; TEMP 97.5; O2SAT 91
[2017-08-28] MEDS: metFORMIN HCL 500 MG TAB PO SCH (08:20)
[2017-08-28] MEDS: CLOPIDOGREL BISULFATE 75 MG TAB PO SCH (08:21)
--- NOTE | 2017-08-28 15:42 | PDOREHIP ---
Admission [facility] - Admission - 3 Day Assessment Period Admission Date/Day 1: 08/17/17 Day 2: 08/18/17 Day 3: 08/19/17 Discharge [facility] - Discharge - 3 Day Assessment Period 2 Days Prior to Anticipated Discharge Date: 08/26/17 1 Day Prior to Anticipated Discharge Date: 08/27/17 Anticipated Discharge Date: 08/28/17 - Discharge Skin Conditions Unhealed Pressure Ulcer (1 or more/Stage 1 or >)-Discharge: 0. No
--- NOTE | 2017-08-28 17:59 | GDS ---
[f rep st] DISCHARGE SUMMARY ADMITTING DIAGNOSIS: Cerebrovascular accident. DISCHARGE DIAGNOSIS: Cerebrovascular accident. OTHER DISCHARGE DIAGNOSES: 1. Diabetes mellitus, type 2. 2. Renal insufficiency, stage 3. CONSULTATIONS: None. PROCEDURES: None. COMPLICATIONS: None. HISTORY/HOSPITAL COURSE: This patient was admitted from [facility]. He had presented there on 08/04/2017, with sudden onset of confusion and speech difficulties. He was treated with tPA thrombolysis in the emergency department, and he was admitted. MRI of the brain showed a punctate acute white matter infarct in the left posterior frontal lobe. It also showed extensive chronic small-vessel ischemic changes and several old microhemorrhages. CT angiogram showed extensive intracranial atherosclerotic disease which was also seen on CT angiogram of the neck. This was most severe in the right vertebral artery, with a dominant left vertebral artery, and there was severe stenosis of various other arteries in the brain. Echocardiogram showed normal systolic function with an ejection fraction of 69%, mitral regurgitation, and mildly elevated right ventricular systolic pressure at 37 mmHg. There was no ASD or patent foramen ovale. He made significant progress during his rehabilitation stay. He was initially confused and markedly dysarthric, with expressive aphasia. This improved considerably. He was also retropulsive, but he soon established independence with bed mobility and was needing no more than standby assist or occasional contact guard assist, due to retropulsion, with transfers. His initial functional independence measure was 75, which is consistent with fdc level of care, with major deficits in memory and communication with significant expressive aphasia and some receptive aphasia. He continued to improve. By , the day of discharge, his functional independence measure had improved to 100 which is consistent with independent living. He was independent with regard to mobility and activities of daily living, using a cane for ambulation and transfers. He was able to ambulate 1000 feet. He climbed and descended 18 stairs with modified independence using a cane. His language had returned to normal. He, however, continued to have decreased memory and attention. He had diabetes mellitus, type 2. Metformin was resumed at 500 mg b.i.d. which was his dose prior to his hospitalization. His hemoglobin A1c was 6.5. He did not have glucose monitoring or insulin during his stay. He had chronic renal insufficiency. His creatinine was as high as 1.66 during his hospitalization, but it was 1.3 when tested in the inpatient rehabilitation , with an estimated GFR of 52. This was more than adequate for resuming metformin. Other labs and studies: CBC was overall within normal limits. He had some anemia while at [facility]. There was some suspicion of a possible pulmonary embolus due to edema and some history of hypoxia while he was in the hospital. A D-dimer was tested, was elevated at 0.74 mcg/mL, but it was not elevated when corrected for age. He had no calf tenderness. No hypoxia , no tachypnea, no chest pain, so further evaluation was not done. Basic metabolic profile on 08/18/2017, overall showed a creatinine of 1.3 and an estimated GFR of 52. It was consistent with mild dehydration with a BUN of 29. Otherwise, electrolytes were within normal limits. Hemoglobin A1c was 6.5. PHYSICAL EXAM ON DISCHARGE: VITAL SIGNS: Blood pressure is 111/66, heart rate is 71, respiratory rate is 15. Oxygen saturation is 91% on room air. Temperature is 36.4 degrees centigrade. GENERAL: This is a well-nourished, well-developed man, appears younger than his chronologic age, sitting in the lunch room eating lunch, cooperative, and in no acute distress. RESPIRATORY: There is no elevated respiratory rate. There are no retractions or use of accessory muscles. SKIN: Warm and dry and normal color. NEUROLOGIC: He is alert and oriented x3. Cranial nerves 2-12 are grossly intact. There is no dysarthria. He appears to comprehend spoken language, and he responds appropriately. There is no focal weakness. Sensation is intact to light touch. Gait using a single-point cane is within normal limits. DISCHARGE PLAN: Condition upon discharge is good. Activity is ad solitario. He is to discharge to his son's home. His son and [id number] will assist him to come down the stairs in the morning and, subsequently, he will spend the day on 1 level. His plan is to move to [facility] on October 03, 2017. DIET: Regular. FOLLOWUP: He has followup planned with neurologist, Dr. James Barksdale and with a new primary care physician, Dr. Stacey Grant. The appointment with Dr. Barksdale has yet to be scheduled. The appointment with Dr. Grant is on 2017 at 1 p.m. MEDICATIONS AT DISCHARGE: 1. Aspirin 325 mg p.o. q.h.s. 2. Acetaminophen 650 mg p.o. q.6 hours p.r.n. 3. Metformin 500 mg p.o. b.i.d. 4. Simvastatin 40 mg p.o. q.h.s. 5. Senna 1 p.o. b.i.d. p.r.n. 6. Clopidogrel 75 mg p.o. daily. ISSUES TO BE ADDRESSED AT FOLLOWUP: 1. Functional status and communication. He will continue physical therapy and speech and language pathology on an outpatient basis after his discharge, and he can follow up regarding his progress with Dr. Barksdale, as well as Dr. Grant. 2. Diabetes mellitus, type 2. He should have routine monitoring of his hemoglobin A1c. 3. Chronic renal insufficiency. Avoid nephrotoxins if possible and routine followup. /[id number]/MODL MTDD
== END 2017-08-28 16:02 | disposition home or self-care (01) | DRG 57 ==
LOC: BREH 16:15
PROVIDERS: ADMIT Internal Medicine; ATTEND Internal Medicine
DX: I69.820 Aphasia following other cerebrovascular disease (principal); I69.822 Dysarthria following other cerebrovascular disease; I69.890 Apraxia following other cerebrovascular disease; I67.2 Cerebral atherosclerosis; I08.1 Rheumatic disorders of both mitral and tricuspid valves; E11.22 Type 2 diabetes mellitus with diabetic chronic kidney disease; I12.9 Hypertensive chronic kidney disease with stage 1 through stage 4 chronic kidney disease, or unspecified chronic kidney disease; N18.3 Chronic kidney disease, stage 3 (moderate); Z87.891 Personal history of nicotine dependence; Z79.84 Long term (current) use of oral hypoglycemic drugs
CPT/HCPCS: 92507-GN; 92522-GN; 92610-GN; 97110-GO; 97110-GP; 97112-GO; 97112-GP; 97116-GP; 97162-GP; 97166-GO; 97530-GO; 97530-GP; 97535-GO; 99366-GO; G0009